=== PATIENT | male | born 1965 | race Caucasian/White ===

== ENCOUNTER 2017-02-01 15:27 | Emergency (ER) | payer BC ==
--- NOTE | 2017-02-01 17:56 | UC ---
Headache HPI - History Of Current Complaint Chief Complaint: Caitlin Stated Complaint: ELIZABETH Time Seen by Provider: 02/01/17 17:49 Hx Obtained From: Patient Onset/Duration: Gradual Onset - from friday, Lasting Days - 5, Still Present Onset Of Symptoms: Gradual Initially Headache Was: Mild Currently Pain Is: Moderate Timing: Constant Character: Throbbing, Pressure - in the cheeks, behind the eyes Location of Headache: Frontal, Temporal Aggravating Factor: Other - cough Associated Signs And Symptoms: Positive: Nausea, Sinus Pressure - Risk Factors SAH Risk Factors: Negative Meningitis Risk Factors: Negative SDH Risk Factors: Negative Temporal Arteritis Risk Factors: Negative - Allergies/Home Medications Allergies/Adverse Reactions: Allergies Allergy/AdvReac Type Severity Reaction Status Date / Time No Known Allergies Allergy Verified 02/01/17 17:20 Home Medications: Home Medications Ibuprofen [Advil] 400 mg PO Q6HR PRN 02/01/17 [History Confirmed 02/01/17] PMH/Surg Hx/FS Hx/Imm Hx Endocrine History Of: Denies: Diabetes, Thyroid Disease, Hyperthyroidism, Hypothyroidism, Dyslipidemia Cardiovascular History Of: Denies: Cardiac Disorders, Hypertension, Pacemaker/ICD, Myocardial Infarction , Congestive Heart Failure, Atrial Fibrillation, Deep Vein Thrombosis, Bleeding Disorders Respiratory History Of: Reports: Asthma GI/ History Of: Denies: Gastroesophageal Reflux, Ulcer, Gastrointestinal Bleed, Gall Bladder Disease, Kidney Stones, Diverticulitis, Renal Disease, Urosepsis Neurological History Of: Reports: Migraine Denies: Seizures Psychological History Of: Denies: Anxiety, Depression, Bipolar Disorder, Schizophrenia, Post Traumatic Stress Disorder Cancer History Of: Denies: Lung Cancer, Colorectal Cancer, Breast Cancer, Prostate Cancer, Cervical Cancer - Surgical History Surgical History: None - Family History Known Family History: Positive: Diabetes - father, Other - mother with migraines. Negative: Cardiac Disease, Hypertension - Social History Occupation: Employed Full-time Lives: With Family Alcohol Use: Occasionally Substance Use Type: None Smoking Status (MU): Never Smoked Tobacco - Immunization History Most Recent Influenza Vaccination: May or June 2015 Review of Systems ENT: Dental Pain, Sore Throat - on the left side., Nasal Discharge Respiratory: Cough All Other Systems Reviewed And Are Negative: Yes Physical Exam Triage Information Reviewed: Yes Appearance: Well-Appearing, Well-Nourished, Pain Distress - mild Vital Signs: Initial Vital Signs Temp 97.0 F 05/20/17 17:14 Pulse 92 02/01/17 17:14 Resp 18 02/01/17 17:14 BP 167/104 02/01/17 17:14 Pulse Ox 97 02/01/17 17:14 Vital Signs Reviewed: Yes Eyes: Positive: Conjunctiva Inflamed - OU ENT: Positive: Pharynx normal, Nasal congestion - with allergic changes, TMs normal Neck exam: Normal Respiratory: Positive: Wheezing - expiratory wheezing with cough Cardiovascular Exam: Normal Musculoskeletal Exam: Normal Neurological Exam: Normal Psychological Exam: Normal Skin Exam: Normal Headache Course/Dx - Differential Dx/Diagnosis Differential Diagnosis/HQI/PQRI: Migraine, Sinus Headache, Tension Headache Provider Diagnoses: Allergic rhinitis. Acute sinusitis. Migraine without aura Discharge - Discharge Plan Condition: Stable Disposition: HOME Prescriptions: Amoxicillin/Clavulanate TAB* [Augmentin TAB 875*] 875 mg PO BID #20 tab Montelukast Sodium TAB* [Singulair 10 MG TAB*] 10 mg PO BEDTIME #30 tab Patient Education Materials: Allergic Rhinitis (ED), Sinusitis (ED), Amoxicillin/Clavulanate Potassium (By mouth), Montelukast (By mouth), Migraine Headache (ED) Additional Instructions: Use the neilmed sinus rinse daily. You can try Exedrine migraine (or generic migraine medication) for the migraine.
[2017-02-01 18:06] VITALS: BP 159/105
== END 2017-02-01 18:19 | disposition home or self-care (01) ==
LOC: UCCORT 15:27
DX: J01.90 Acute sinusitis, unspecified (principal); J30.9 Allergic rhinitis, unspecified; G43.009 Migraine without aura, not intractable, without status migrainosus
CPT/HCPCS: 99212; G0463

== ENCOUNTER 2017-09-14 07:48 | Emergency (ER) | payer BC ==
[2017-09-14 08:07] VITALS: BP 179/91
--- NOTE | 2017-09-14 08:45 | UC ---
Eye Complaint HPI - HPI Summary HPI Summary: Seen PCP yesterday DX with Sinusitis, last night felt like he had grit in his eyes--today purulent drainage and lid swelling, injected conjunctiva--- - History of Current Complaint Chief Complaint: UCEye Stated Complaint: RIGHT EYE Time Seen by Provider: 09/14/17 08:31 Hx Obtained From: Patient Onset/Duration: Sudden Onset, Lasting Days - 1, Still Present Timing: Constant Severity Initially: Moderate Severity Currently: Moderate Location of Injury: Conjunctiva Character: Foreign Body Sensation Aggravating Factor(s): Nothing Alleviating Factor(s): Nothing Associated Signs And Symptoms: Positive: Drainage (Purulent) - Allergies/Home Medications Allergies/Adverse Reactions: Allergies Allergy/AdvReac Type Severity Reaction Status Date / Time No Known Allergies Allergy Verified 09/14/17 08:01 PMH/Surg Hx/FS Hx/Imm Hx Previously Healthy: No Respiratory History: Asthma - Surgical History Surgical History: None - Family History Known Family History: Positive: Diabetes - father, Other - mother with migraines. Negative: Cardiac Disease, Hypertension - Social History Occupation: Employed Full-time Lives: With Family Alcohol Use: Occasionally Substance Use Type: None Smoking Status (MU): Never Smoked Tobacco - Immunization History Most Recent Influenza Vaccination: May or June 2015 Review of Systems Constitutional: Negative Skin: Negative Eyes: Drainage - ou, Eye Redness - ou ENT: Negative Respiratory: Negative Cardiovascular: Negative Gastrointestinal: Negative Genitourinary: Negative Motor: Negative Neurovascular: Negative Musculoskeletal: Negative Neurological: Negative Psychological: Negative Is Patient Immunocompromised?: No All Other Systems Reviewed And Are Negative: Yes Physical Exam Triage Information Reviewed: Yes Appearance: Well-Appearing, No Pain Distress, Obese Vital Signs: Initial Vital Signs Temp 97.6 F 09/14/17 08:03 Pulse 84 09/14/17 08:03 Resp 18 09/14/17 08:03 BP 179/91 09/14/17 08:03 Vital Signs Reviewed: Yes Eye Exam: Normal Eyes: Positive: Conjunctiva Clear ENT Exam: Normal ENT: Positive: Normal ENT inspection, Hearing grossly normal, Pharynx normal, Nasal congestion, Nasal drainage, Sinus tenderness. Negative: Trismus, Muffled voice, Hoarse voice Dental Exam: Normal Neck exam: Normal Neck: Positive: Supple, Nontender Respiratory Exam: Normal Respiratory: Positive: Chest non-tender, No respiratory distress, No accessory muscle use Cardiovascular Exam: Normal Cardiovascular: Positive: RRR, Pulses Normal, Brisk Capillary Refill Musculoskeletal Exam: Normal Musculoskeletal: Positive: Strength Intact, ROM Intact, No Edema Neurological Exam: Normal Neurological: Positive: Alert, Muscle Tone Normal Psychological Exam: Normal Skin Exam: Normal Eye Complaint Course/Dx - Course Course Of Treatment: polytrim q4h while awake both eye---follow blood pressure with pcp - Differential Dx/Diagnosis Provider Diagnoses: bilateral conjuctivitis, elevated blood pressure with dx of hypertension Discharge - Discharge Plan Condition: Stable Disposition: HOME Prescriptions: Polymyx/Trimethoprim OPTH* [Polytrim OPHTH*] 1 drop BOTH EYES Q4H #1 btl Patient Education Materials: How to Use Eye Drops (ED), Hypertension (ED), Conjunctivitis (ED) Referrals: Delmi Zheng MD [Primary Care Provider] - 2 Weeks
== END 2017-09-14 08:53 | disposition home or self-care (01) ==
LOC: UCCORT 07:48
DX: H10.9 Unspecified conjunctivitis (principal); I10 Essential (primary) hypertension
CPT/HCPCS: 99212; G0463

== ENCOUNTER 2018-10-27 11:20 | Emergency (ER) | payer BC ==
[2018-10-27 11:34] VITALS: BP 147/75
--- NOTE | 2018-10-27 11:49 | UC ---
UC General HPI - HPI Summary HPI Summary: headache, body aches and cough since yesterday. No fever but feels chilled. and son with same and both dx with flu. pt has a hx of asthma. - History of Current Complaint Chief Complaint: UCRespiratory Stated Complaint: FLU SX'S Time Seen by Provider: 10/27/18 11:27 Hx Obtained From: Patient Timing: Constant Pain Intensity: 5 Associated Signs & Symptoms: Negative: Chest Pain, Diarrhea, SOB, Vomiting - Allergy/Home Medications Allergies/Adverse Reactions: Allergies Allergy/AdvReac Type Severity Reaction Status Date / Time No Known Allergies Allergy Verified 10/27/18 11:30 Home Medications: Home Medications Olmesartan (NF) [Benicar (NF)] 1 tab QAM 10/27/18 [History Confirmed 10/27/18] PMH/Surg Hx/FS Hx/Imm Hx Respiratory History: Asthma - Surgical History Surgical History: None - Family History Known Family History: Positive: Diabetes - father, Other - mother with migraines. Negative: Cardiac Disease, Hypertension - Social History Alcohol Use: Occasionally Substance Use Type: None Smoking Status (MU): Never Smoked Tobacco - Immunization History Most Recent Influenza Vaccination: May or June 2015 Review of Systems All Other Systems Reviewed And Are Negative: Yes Skin: Positive: Negative Eyes: Positive: Negative ENT: Positive: Negative Respiratory: Positive: Cough. Negative: Shortness Of Breath Cardiovascular: Positive: Negative Gastrointestinal: Positive: Negative Genitourinary: Positive: Negative Motor: Positive: Negative Neurovascular: Positive: Negative Musculoskeletal: Positive: Myalgia Neurological: Positive: Headache Psychological: Positive: Negative Physical Exam Triage Information Reviewed: Yes Appearance: Ill-Appearing - butnon toxic Vital Signs: Initial Vital Signs Temp 97.9 F 10/27/18 11:32 Pulse 101 10/27/18 11:32 Resp 17 10/27/18 11:32 BP 147/75 10/27/18 11:32 Pulse Ox 98 10/27/18 11:32 Vital Signs Reviewed: Yes Eyes: Positive: Conjunctiva Clear ENT: Positive: Pharynx normal, TMs normal. Negative: Nasal congestion Neck: Positive: Supple, Nontender, No Lymphadenopathy Respiratory: Positive: Lungs clear, No respiratory distress Cardiovascular: Positive: RRR, No Murmur. Negative: Tachycardia Abdomen Description: Positive: Nontender, No Organomegaly, Soft Bowel Sounds: Positive: Present Musculoskeletal: Positive: ROM Intact Neurological: Positive: Alert Psychological: Positive: Age Appropriate Behavior Skin Exam: Normal Course/Dx - Course Course Of Treatment: No hx HTN, BP illness related. - Differential Dx - Multi-Symptom Differential Diagnoses: Other - no concern for pneumonia - Diagnoses Provider Diagnosis: Influenza-like illness Discharge - Sign-Out/Discharge Documenting (check all that apply): Patient Departure All imaging exams completed and their final reports reviewed: No Studies - Discharge Plan Condition: Stable Disposition: HOME Prescriptions: Oseltamivir CAP* [Tamiflu CAP*] 75 mg PO BID 5 Days #10 cap Patient Education Materials: Influenza (DC) Referrals: Delmi Zheng MD [Primary Care Provider] - 7 Days - Billing Disposition and Condition Condition: STABLE Disposition: Home
== END 2018-10-27 11:52 | disposition home or self-care (01) ==
LOC: UCCORT 11:20
DX: J10.1 Influenza due to other identified influenza virus with other respiratory manifestations (principal); J45.909 Unspecified asthma, uncomplicated
CPT/HCPCS: 99212; G0463

== ENCOUNTER 2019-03-19 15:24 | Emergency (ER) | payer BC ==
[2019-03-19 15:56] VITALS: BP 156/94
--- NOTE | 2019-03-19 17:39 | UC ---
Throat Pain/Nasal Vince HPI - HPI Summary HPI Summary: 54-year-old male comes in with a chief complaint of upper respiratory tract infection symptoms for 3 days. Patient has rhinorrhea. He has postnasal drip he has chest congestion he's having wheezing. Does have a history of asthma but he cannot find his inhaler. No fevers measured. - History of Current Complaint Chief Complaint: UCRespiratory Stated Complaint: CHEST CONGESTION,HEADACHE,COUGH Time Seen by Provider: 03/19/19 17:17 Pain Intensity: 5 - Allergies/Home Medications Allergies/Adverse Reactions: Allergies Allergy/AdvReac Type Severity Reaction Status Date / Time No Known Allergies Allergy Verified 03/19/19 15:51 PMH/Surg Hx/FS Hx/Imm Hx Previously Healthy: Yes Cardiovascular History: Hypertension Respiratory History: Asthma - Surgical History Surgical History: None - Family History Known Family History: Positive: Diabetes - father, Other - mother with migraines. Negative: Cardiac Disease, Hypertension - Social History Alcohol Use: Weekly Substance Use Type: None Smoking Status (MU): Never Smoked Tobacco - Immunization History Most Recent Influenza Vaccination: May or June 2015 Review of Systems All Other Systems Reviewed And Are Negative: Yes Constitutional: Positive: Negative Skin: Positive: Negative Eyes: Positive: Negative ENT: Positive: Nasal Discharge, Sinus Congestion Respiratory: Positive: Cough, Other - SEE HPI Cardiovascular: Positive: Negative Gastrointestinal: Positive: Negative Motor: Positive: Negative Neurovascular: Positive: Negative Musculoskeletal: Positive: Negative Neurological: Positive: Negative Psychological: Positive: Negative Is Patient Immunocompromised?: No Physical Exam Triage Information Reviewed: Yes Appearance: No Pain Distress, Well-Nourished, Ill-Appearing - MILD Vital Signs: Initial Vital Signs Temp 97.7 F 03/19/19 15:51 Pulse 82 03/19/19 15:51 Resp 20 03/19/19 15:51 BP 156/94 03/19/19 15:51 Pulse Ox 100 03/19/19 15:51 Vital Signs Reviewed: Yes Eye Exam: Normal Eyes: Positive: Conjunctiva Clear ENT: Positive: Pharyngeal erythema, Nasal congestion, Nasal drainage, TMs normal Neck: Positive: Supple Respiratory: Positive: No respiratory distress, Rhonchi, Wheezing Cardiovascular: Positive: RRR Musculoskeletal Exam: Normal Musculoskeletal: Positive: Strength Intact, ROM Intact Neurological Exam: Normal Neurological: Positive: Alert, Muscle Tone Normal Psychological Exam: Normal Psychological: Positive: Age Appropriate Behavior Skin Exam: Normal Throat Pain/Nasal Course/Dx - Course Course Of Treatment: DISCUSSED VIRAL VERSES BACTERIAL INFECTION AND THE ROLE OF ANTIBIOTICS. THE PATIENT PREFERS TO BE ON ANTIBIOTICS AT THIS TIME. - Differential Dx/Diagnosis Provider Diagnosis: Bronchitis with bronchospasm Discharge - Sign-Out/Discharge Documenting (check all that apply): Patient Departure All imaging exams completed and their final reports reviewed: No Studies - Discharge Plan Condition: Stable Disposition: HOME Prescriptions: Amoxicillin/Clavulanate TAB* [Augmentin TAB 875*] 875 mg PO BID #20 tab Levalbuterol HFA INHALER* [Xopenex Hfa Inhaler*] 2 puff INH Q6H PRN #1 mdi PRN Reason: Shortness Of Breath predniSONE TAB* [Deltasone 20 MG TAB*] 40 mg PO DAILY #10 tab Patient Education Materials: Acute Bronchitis (ED), Bronchospasm (ED) Referrals: Delmi Zheng MD [Primary Care Provider] - Additional Instructions: FOLLOW UP WITH YOUR DOCTOR IF NOT COMPLETELY IMPROVED. GET REEVALUATED SOONER IF WORSE OR ANY QUESTIONS OR CONCERNS. - Billing Disposition and Condition Condition: STABLE Disposition: Home
== END 2019-03-19 17:43 | disposition home or self-care (01) ==
LOC: UCCORT 15:24
DX: J40 Bronchitis, not specified as acute or chronic (principal); I10 Essential (primary) hypertension
CPT/HCPCS: 99212; G0463

== ENCOUNTER 2019-11-14 13:05 | Emergency (ER) | payer BC ==
[2019-11-14 14:02] VITALS: BP 174/104
--- NOTE | 2019-11-14 14:03 | UC ---
Throat Pain/Nasal Vince HPI - HPI Summary HPI Summary: Pt presents with c/o sudden onset of ST X 1-2 days. Pt's and son both tested positive for strep last week. - History of Current Complaint Chief Complaint: UCRespiratory Stated Complaint: SORE THROAT Time Seen by Provider: 11/14/19 14:01 Hx Obtained From: Patient Onset/Duration: Sudden Onset Severity: Moderate Pain Intensity: 5 Cough: None Associated Signs & Symptoms: Positive: Dysphagia - Epiglottits Risk Factors Epiglottis Risk Factors: Sudden Onset - Allergies/Home Medications Allergies/Adverse Reactions: Allergies Allergy/AdvReac Type Severity Reaction Status Date / Time No Known Allergies Allergy Verified 11/14/19 13:54 Home Medications: Home Medications Amoxicillin/Clavulanate TAB* [Augmentin TAB 500 mg*] 500 mg PO Q12H #20 tab 10/04 [Rx] PMH/Surg Hx/FS Hx/Imm Hx Previously Healthy: Yes - Surgical History Surgical History: None - Family History Known Family History: Positive: Diabetes - father, Other - mother with migraines. Negative: Cardiac Disease, Hypertension - Social History Occupation: Employed Full-time Lives: With Family Alcohol Use: Occasionally Substance Use Type: None Smoking Status (MU): Never Smoked Tobacco Have You Smoked in the Last Year: No - Immunization History Most Recent Influenza Vaccination: May or June 2015 Vaccination Up to Date: No Review of Systems All Other Systems Reviewed And Are Negative: Yes Constitutional: Positive: Fatigue Skin: Positive: Negative Eyes: Positive: Negative ENT: Positive: Sore Throat Respiratory: Positive: Negative Cardiovascular: Positive: Negative Gastrointestinal: Positive: Negative Genitourinary: Positive: Negative Motor: Positive: Negative Neurovascular: Positive: Negative Musculoskeletal: Positive: Myalgia Neurological/Mental Status: Positive: Headache Psychological: Positive: Negative Is Patient Immunocompromised?: No Physical Exam Triage Information Reviewed: Yes Appearance: Ill-Appearing Vital Signs: Initial Vital Signs Temp 98.3 F 11/14/19 13:55 Pulse 77 11/14/19 13:55 Resp 16 11/14/19 13:55 BP 174/104 11/14/19 13:55 Pulse Ox 98 11/14/19 13:55 Vital Signs Reviewed: Yes Eye Exam: Normal ENT: Positive: Pharyngeal erythema, Tonsillar swelling Dental Exam: Normal Neck: Positive: Tenderness @, Enlarged Nodes @ Respiratory Exam: Normal Cardiovascular Exam: Normal Musculoskeletal Exam: Normal Neurological Exam: Normal Psychological Exam: Normal Skin Exam: Normal Throat Pain/Nasal Course/Dx - Course Course Of Treatment: Pt reported that he has stopped taking his BP medication as he did not think he needed it. He has not followed up with his PCP. Pt was informed of today's BP. - Differential Dx/Diagnosis Differential Diagnosis/HQI/PQRI: Laryngitis, Pharyngitis, Tonsillitis Provider Diagnosis: Tonsillitis Discharge ED - Sign-Out/Discharge Documenting (check all that apply): Patient Departure All imaging exams completed and their final reports reviewed: No Studies - Discharge Plan Condition: Stable Disposition: HOME Prescriptions: Amoxicillin/Clavulanate TAB* [Augmentin TAB 500 mg*] 500 mg PO Q12H #20 tab Patient Education Materials: Tonsillitis (ED) Referrals: Delmi Zheng MD [Primary Care Provider] - If Needed - Billing Disposition and Condition Condition: STABLE Disposition: Home
== END 2019-11-14 14:23 | disposition home or self-care (01) ==
LOC: UCCORT 13:05
DX: J03.90 Acute tonsillitis, unspecified (principal); M79.10 Myalgia, unspecified site
CPT/HCPCS: 87651; 99212; G0463